=== PATIENT | male | born 1960 | race Caucasian/White ===

== ENCOUNTER 2016-07-28 10:44 | Emergency (ER) | payer MEDICAID ==
[~2016-07-28] VITALS: Ht 167.6 cm; Wt 83.5 kg
[2016-07-28] MEDS ORDERED: KETOROLAC TROMETHAMINE INJ 30 MG/ML VIAL IV ONE (11:00)
[2016-07-28] MEDS ORDERED: ONDANSETRON HCL/PF 4 MG/2 ML VIAL IVP ONE (11:00)
[2016-07-28] MEDS ORDERED: IV NS 0.9% 1,000 ML BAG IV ONE (11:00)
[2016-07-28] MEDS ORDERED: HYDROMORPHONE INJ 2 MG/ML DISP.SYRIN IV ONE (11:00)
[2016-07-28] MEDS ORDERED: HYDROMORPHONE 1 MG/1 ML DISP.SYRIN ONE (11:05)
[2016-07-28] MEDS ORDERED: KETOROLAC TROMETHAMINE 15 MG/ML VIAL ONE (11:06)
[2016-07-28] MEDS ORDERED: IV SET PRIMARY PUMP SET 1 EA INFUS.SET MC ONE (11:06)
[2016-07-28] MEDS ORDERED: ONDANSETRON HCL/PF 4 MG/2 ML VIAL ONE (11:06)
[2016-07-28] MEDS ORDERED: IV NS 0.9% 1,000 ML ONE (11:06)
[2016-07-28 11:10] LABS: BASOPHILS # (AUTO) 0.1 /CMM (0.0-0.2); BASOPHILS % (AUTO) 1.8 % (0.0-2.0); DIFF TOTAL % 100 %; EOSINOPHILS # (AUTO) 0.3 /CMM (0.0-0.7); EOSINOPHILS % (AUTO) 4.3 % (0.0-6.0); HEMATOCRIT 46 % (39-51); HEMOGLOBIN 14.8 g/dL (13.5-17.5); LYMPHOCYTES # (AUTO) 1.4 /CMM (0.8-4.8); LYMPHOCYTES % (AUTO) 22.4 % (20.0-44.0); MEAN CORPUSCULAR HEMOGLOBIN 29 PG (26.0-33.0); MEAN CORPUSCULAR HGB CONC 32 g/dl (31.0-36.0); MEAN CORPUSCULAR VOLUME 92 fL (80-96); MONOCYTES # (AUTO) 0.4 /CMM (0.1-1.30); MONOCYTES % (AUTO) 5.9 % (2.0-12.0); NEUTROPHILS # (AUTO) 4.1 /CMM (1.8-8.9); NEUTROPHILS % (AUTO) 65.6 % (43.0-81.0); PLATELET COUNT (AUTO) 291 /CMM (150-450); RED BLOOD CELL COUNT(AUTO) 5.04 MIL/uL (4.5-6.0); WHITE BLOOD COUNT (AUTO) 6.3 K/uL (4.3-11.0)
[2016-07-28 11:15] LABS: KETONES,URINE Negative (NEGATIVE); LEUKOCYTE ESTERASE ,URINE Small (NEGATIVE); PH,URINE 5.5 (5.0-8.0)
[2016-07-28 11:20] LABS: ADD UA MICROSCOPIC YES; CALCIUM, SERUM 9.3 mg/dL (8.5-10.1); CREATININE 1.6 mg/dL (0.6-1.3); POTASSIUM 5.5 mmol/L (3.5-5.1)
[2016-07-28 11:26] LABS: ALBUMIN 4.5 g/dL (3.4-5.0); BILIRUBIN,DIRECT 0.1 mg/dL (0.0-0.2); BILIRUBIN,TOTAL 0.6 mg/dL (0.2-1.0); TOTAL PROTEIN, SERUM 8.1 g/dL (6.4-8.2)
[2016-07-28 11:27] LABS: INDIRECT BILIRUBIN 0.5 mg/dL (0.0-1.1)
[2016-07-28 11:35] LABS: ADD URINE CULTURE NO; HYALINE CASTS, URINE Few /LPF (None Seen)
[2016-07-28 12:20] VITALS: BP 142/86
== END 2016-07-28 12:21 | disposition home or self-care (01) ==
LOC: ER 10:46
DX: N20.0 Calculus of kidney (principal); I10 Essential (primary) hypertension
CPT/HCPCS: 36415; 74176; 80048; 80076; 81001; 83690; 85025; 87086; 96361; 96374; 96375; 99285; A4606; J1170; J1885; J2405; J7030; Z7610; 81000-TC